=== PATIENT | male | born 1995 | race Two or more races ===

== ENCOUNTER 2024-09-18 18:53 | Emergency (ER) | payer MEDICARE, MEDICAID ==
[~2024-09-18] VITALS: Ht 175.3 cm; Wt 58.1 kg
--- NOTE | 2024-09-18 20:14 | ED.PDOC ---
Eye-HPI HPI Comments 29 year old male presents to ER for foreign body removal. Patient is present with father, with PMH significant for Autism, reporting that his earring got embedded in his right lower earlobe when he woke up this morning and presents to ER today for foreign body removal. Denies any pain and presents to ER ambulatory, with steady gait, in no distress. Denies any further symptoms/complaints Chief Complaint: Earache Time Seen by MD: 19:05 Primary Care Provider: UNKNOWN Reviewed Notes: Nurses Notes, Medications, Allergies Allergies: Coded Allergies: NO KNOWN ALLERGIES (Unverified , 09/18/24) Information Source: Patient, Relative (Father) Mode of Arrival: Ambulatory Past Medical History PAST MEDICAL HISTORY: Seizures (epilepsy) Past Medical History (Other): Autism Surgical History: Denies all surgeries Family History Family History: Unknown Social History Smoker: Non-Smoker Alcohol: Denies ETOH Use Drugs: Denies Drug Use Lives In: Home Constitutional: denies: chills, diaphoresis, fatigue, fever, malaise, sweats, weakness, others EENTM: reports: others (As stated in HPI) Respiratory: denies: cough, hemoptysis, orthopnea, SOB at rest, shortness of breath, SOB with excertion, stridor, wheezing, others Cardiovascular: denies: chest pain, dizzy spells, diaphoresis, Dyspnea on exertion, edema, irregular heart beat, left arm pain, lightheadedness, palpitations, PND, syncope, others Gastrointestinal: denies: abdomen distended, abdominal pain, blood streaked bowels, constipated, diarrhea, dysphagia, difficulty swallowing, hematemesis, melena, nausea, poor appetite, poor fluid intake, rectal bleeding, rectal pain, vomiting, others Genitourinary: denies: burning, dysuria, flank pain, frequency, hematuria, incontinence, penile discharge, penile sore, pain, testicle pain, testicle swelling, urgency, others Neurological: denies: dizziness, fainting, headache, left sided numbness, left sided weakness, numbness, paresthesia, pre-existing deficit, right sided numbness, right sided weakness, seizure, speech problems, tingling, tremors, weakness, others Musculoskeletal: denies: back pain, gout, joint pain, joint swelling, muscle pain, muscle stiffness, neck pain, others Integumetry: denies: bruises, change in color, change in hair/nails, dryness, laceration, lesions, lumps, rash, wounds, others Allergic/Immunocompromised: denies: Difficulty Healing, Frequent Infections, Hives, Itching, others Hematologic/Lymphatic: denies: anemia, blood clots, easy bleeding, easy bruising, swollen glands, others Endocrine: denies: excessive hunger, excessive sweating, excessive thirst, excessive urination, flushing, intolerance to cold, intolerance to heat, unexplained weight gain, unexplained weight loss, others Psychiatric: denies: anxiety, bipolar disorder, depression, hopeless, panic disorder, schizophrenia, sleepless, suicidal, others Physical Exam General Appearance: No Apparent Distress HEENT: PERRL/EOMI, Pharynx Normal, Other (Metallic earring foreign body noted partially visualized in right lower earlobe. No bleeding/erythema noted. Right TM-normal) Neck: Full Range of Motion, Non-Tender, Normal Respiratory: Chest Non-Tender, Lungs Clear, No Accessory Muscle Use, No Respiratory Distress, Normal Breath Sounds Cardiovascular: No Murmur, No Gallop, Regular Rate/Rhythm Breast Exam: Deferred Gastrointestinal: NOT DONE Genitalia: Deferred Pelvic: Deferred Rectal: Deferred Extremities: Normal capillary refill, Normal range of motion Neurologic: Alert, equipment operating engineer II-XII nml as Tested, No Motor Deficits, Normal Affect, Normal Mood, No Sensory Deficits Cerebellar Function: Normal Reflexes: Normal Skin: Dry, Normal Color, Warm Lymphatic: No Adenopathy Was a procedure done? Was a procedure done?: Yes Sedation Sedation?: No Foreign Body Removal Foreign body in: Ear (Right lower earlobe) Anesthetic: Nothing Procedure: Identified, Removed (Metallic earring foreign body fully removed from right lower earlobe using tweezers without complicaiton. Patient tolerated well without any complication) Informed consent obtained: Yes Risks/benefits/alt described: Yes EENT DIFF Eye: N/A Ear: Abrasion, Cerumen Impaction, Otitis Media, Perforation X-Ray, Labs, Meds, VS Vital Signs Date Time Temp Pulse Resp B/P (MAP) Pulse Ox O2 Delivery O2 Flow Rate FiO2 09/18/24 19:08 99.5 79 16 132/76 (94 97 99.5 Patient had improvement in symptoms and was asymptomatic prior to discharge Advised to follow up with PCP in 1-2 days Advised to return to ER immediately if symptoms worsen Time of 1ST Reevaluation: 19:54 Reevaluation 1ST: N/A Patient Education/Counseling: Diagnosis, Treatment, Prognosis, Need For Follow Up Family Education/Counseling: Diagnosis, Treatment, Prognosis, Need For Follow Up SEPSIS Sepsis Screen Date sepsis recognized/suspect: Sep 18, 2024 Time Sepsis recognized/suspect: 1901 Recent Procedure: No On Antibiotic Therapy: No Respiratory Rate >20: No Heart Rate >90: No Temp<36 C (96.8 F) or >38.3 C: No SBP <90 or MAP <65 mmHG: No New Acute Mental Status Change: No Is the patient on CPAP, BIPAP,: No Vital Signs Date Time Temp Pulse Resp B/P (MAP) Pulse Ox O2 Delivery O2 Flow Rate FiO2 09/18/24 19:08 99.5 79 16 132/76 (94) 97 99.5 Departure 1 Departure Time of Disposition: 20:12 Impression: Primary Impression: Acute foreign body of right earlobe Qualified Codes: T16.1XXA - Foreign body in right ear, initial encounter Disposition: HOME / SELF CARE / HOMELESS Condition: Stable Discharged With: Relative (Father) Critical Care Note Critical Care Time?: No Stability Stability form required: No Heart Score Heart Score: Heart Score Response (Comments) Value History N/A 0 EKG N/A 0 Age N/A 0 Risk Factors N/A 0 Troponin N/A 0 Total 0 MIA OTERO Sep 18, 2024 20:14
[2024-09-18 20:20] VITALS: BP 132/76; PULSE 79; RESP 16; TEMP 99.5; O2SAT 97
== END 2024-09-18 20:22 | disposition home or self-care (01) ==
LOC: ER 19:00
DX: S00.451A Superficial foreign body of right ear, initial encounter (principal); G40.909 Epilepsy, unspecified, not intractable, without status epilepticus; F84.0 Autistic disorder; W45.8XXA Other foreign body or object entering through skin, initial encounter; Y93.89 Activity, other specified; Y92.89 Other specified places as the place of occurrence of the external cause; Y99.8 Other external cause status